=== PATIENT | female | born 1985 | race Caucasian/White ===

== ENCOUNTER 2018-08-13 15:22 | Emergency (ER) | payer BC ==
--- NOTE | 2018-08-13 17:35 | OBHP ---
Datetime: 08/13/2018 17:32 IP Adm Impression: Term, intrauterine ; No Active Labor IP Admit Plan: Observation/Evaluation; Discharge home Admit Comment, IP Provider: Patient is a 32-year-old 2 para 1 estimated due date 09/03/2018 estimated gestational age 37 weeks patient presents to labor and delivery complaining of uterine cont ractions of mild intensity. Patient denies any vaginal bleeding any leakage of fluid she reports good movement Past medical history none Medications vitamins Social history denies alcohol tobacco use care by Dr. Herrmann unremarkable Obstetrical history normal spontaneous vaginal delivery no complications Review of systems patient denies headache chest pain shortness breath palpitations nausea vomiting diarrhea heat or cold intolerance easy bruisability musculoskeletal or neurological complaints Vital signs stable afebrile Physical exam see notes Intrauterine at 37 weeks latent labor Observation External monitor Discharge home Patient to follow up with PMD in a.m. labor precautions provided And of care discussed with patient and partner who agree Pelvic Type - PN: Adequate Extremities - PN: Normal Abdomen - PN: Normal Back - PN: Normal Breast - PN: Not Done Lungs - PN: Normal Heart - PN: Normal Thyroid - PN: Normal Neurologic - PN: Normal HEENT - PN: Normal General - PN: Normal Weight - Estimated: 7 Presentation-Admit: Vertex FHR - Baseline A Provider: 150 Gestation - Est Wks by US: 37.0 Pool Provider: Negative Vital Signs Provider: Reviewed IP Chief Complaint: Uterine contractions; Maternal discomfort NICHD Variability Prov Fetus A: Moderate 6-25bpm NICHD Accel Fetus A IP Provider: [id number] FHR Category Provider Fetus A: Category I NICHD Decel Fetus A IP Provider: None Dilatation, Provider: 2 Effacement, Provider: 50 Station, Provider: -2 Genitourinary Exam: Normal DTRs - PN: Normal
[2018-08-13 21:46] VITALS: BP 106/59; PULSE 72
== END 2018-08-13 17:44 | disposition home or self-care (01) ==
LOC: H.EROB2 15:22
DX: O26.93 Pregnancy related conditions, unspecified, third trimester (principal); R10.2 Pelvic and perineal pain; Z3A.37 37 weeks gestation of pregnancy

== ENCOUNTER 2018-08-27 11:47 | Inpatient (IN) | payer BC ==
[2018-08-27] MEDS: Lactated Ringer's 1,000 ML IV SCH ×2 (12:24→14:30)
[2018-08-27 12:26] VITALS: BMI 26.4
[2018-08-27] MEDS ORDERED: Lactated Ringer's 1,000 ML IV ONE (13:30)
[2018-08-27] MEDS ORDERED: Oxytocin 30 UNIT 30 UNITS/500 ML BAG IV ONE ×2 (13:31→13:43)
[2018-08-27] MEDS ORDERED: OXYTOCIN/0.9 % NS 20 UNIT/1,000 ML BAG IV ONE (13:31)
[2018-08-27 14:04] LABS: BASO % 0.1 % (0.0-2.0); EOS % 0.1 % (0.0-4.0); HEMOGLOBIN 13.8 g/dL (12.0-16.0); LYMPH # 1.2 K/uL (1.0-4.3); MEAN CELL VOLUME 94.7 fl (81.0-99.0); MEAN CORPUSCULAR HGB CONC 33.8 g/dL (33.0-37.0); MEAN PLATELET VOLUME 9.7 fl (7.2-11.7); MONO # 0.4 K/uL (0.0-0.8); MONO % 4.1 % (0.0-10.0); NEUT # 8.1 K/uL (1.8-7.0); NEUT % 83.7 % (50.0-75.0); NRBC % 0.1 % (0.0-0.0); RBC 4.3 Mil/uL (3.80-5.20); RED CELL DISTRIBUTION WIDTH 14.1 % (11.5-14.5); WHITE BLOOD COUNT 9.6 K/uL (4.8-10.8)
[2018-08-27] MEDS ORDERED: Fentanyl/Bupivacaine HCl 250 ML EPI ONE (14:17)
[2018-08-27 14:56] VITALS: O2SAT 98
--- NOTE | 2018-08-27 17:44 | OBADHP ---
Datetime: 08/27/2018 17:37 Admit Comment, IP Provider: GBS neg Extremities - PN: Normal Abdomen - PN: Abnormal Back - PN: Not Done Breast - PN: Not Done Lungs - PN: Normal Heart - PN: Normal Thyroid - PN: Normal Neurologic - PN: Normal HEENT - PN: Normal General - PN: Normal Presentation-Admit: cephalic FHR - Baseline A Provider: 140 Amniotic Fluid Color, Provider: Clear Membranes, Provider: Ruptured Contraction Comments Provider: 2-3 mins Comments, ACOG Physical Exam: Abd term fundus NT Ext no calf tenderness Gestation - Est Wks by US: 39.0 Pool Provider: Positive Nitrazine Provider: Positive IP Hx Assessment: The History has been Reviewed and is Current Vital Signs Provider: Reviewed IP Chief Complaint: Uterine contractions; Suspected ruptured membranes NICHD Variability Prov Fetus A: Moderate 6-25bpm NICHD Accel Fetus A IP Provider: Prolonged NICHD Decel Fetus A IP Provider: None Genitourinary Exam: Normal DTRs - PN: Normal EGA AdmitDate IP: 39.0 IP Adm Impression: Term, intrauterine ; Active labor; Ruptured Membranes IP Admit Plan: Admit to unit; Initiate labor augmentation protocol Datetime: 08/13/2018 17:32 Pelvic Type - PN: Adequate Weight - Estimated: 7 FHR Category Provider Fetus A: Category I Dilatation, Provider: 2 Effacement, Provider: 50 Station, Provider: -2
[2018-08-27] MEDS ORDERED: Lidocaine 1% Inj (20ml) ONE (19:48)
[2018-08-28] MEDS ORDERED: Benzocaine/Menthol SPRAY TOP PRN ×2 (02:54→06:13)
[2018-08-28] MEDS ORDERED: Oxycodone/Acetaminophen 5/325 mg Tab PO PRN ×2 (02:54→06:13)
--- NOTE | 2018-08-28 02:54 | OBDS ---
MATERNAL INFORMATION Estimated Blood Loss (ml): 250cc Maternal Complications: None Provider Comments: Delivered a living baby boy appears term but LGA, cried spontaneously, 9/9, AF clear, placenta delivered complete and intact. Episiotomy done and repaired as above. No compli cations Tolerated procedure well Rectal done no defects. No other lacerations or tears noted Uterus c ontracted well. LABOR SUMMARY EDC: 09/03/2018 00:00 No. Babies in Womb: 1 LABOR INFORMATION Reason for Induction: Not Applicable Group B Beta Strep: Negative Steroids Given: None Reason Steroids Not Administered: Not Applicable VAGINAL DELIVERY Episiotomy: Median Laceration Extension: First Degree Laceration Type: Perineal Laceration Repair: Yes Laceration Repair Note: midline 1st dg episiotomy done with small perineal extension also 1st dg, an d repaired with 2-0 chromic continously for vagina and perineum and 3 interrupted for deeper tissues No complications. Sponge Count Correct: Yes Sharps Count Correct: Yes Count Comment: count correct and verified by RN CSECTION DELIVERY Primary Indication: N/A Secondary Indication: N/A CSection Incision: N/A Uterine Closure: N/A BABY A INFORMATION Forceps: N/A Vacuum Extraction: N/A Shoulder Dystocia : No PRESENTATION/POSITION BABY A Presentation: Cephalic Cephalic Presentation: Vertex Vertex Position: Right Occipital Posterior Breech Presentation: N/A PLACENTA INFORMATION BABY A Placenta Method of Delivery: Spontaneous Placenta Status: Delivered IDENTIFICATION/MEDS BABY A ID Band Number: [id number]
[2018-08-28] MEDS ORDERED: Influenza Vaccine (5 YR UP)/PF 60 MCG/0.5 ML SYR IM ONE (09:00)
[2018-08-28] MEDS: Hydrocortisone 2.5% (Rectal) CREAM PR SCH ×3 (17:49→17:50)
[2018-08-29 06:28] LABS: BASO % 0.2 % (0.0-2.0); EOS # 0.1 K/uL (0.0-0.7); EOS % 0.7 % (0.0-4.0); HEMOGLOBIN 12.1 g/dL (12.0-16.0); LYMPH # 1.8 K/uL (1.0-4.3); LYMPH % 16.6 % (20.0-40.0); MEAN CORPUSCULAR HEMOGLOBIN 32.6 pg (27.0-31.0); MEAN CORPUSCULAR HGB CONC 34.7 g/dL (33.0-37.0); MONO # 0.5 K/uL (0.0-0.8); MONO % 5.1 % (0.0-10.0); NEUT # 8.3 K/uL (1.8-7.0); NEUT % 77.4 % (50.0-75.0); RBC 3.72 Mil/uL (3.80-5.20); RED CELL DISTRIBUTION WIDTH 14.3 % (11.5-14.5); WHITE BLOOD COUNT 10.7 K/uL (4.8-10.8)
--- NOTE | 2018-08-29 08:17 | OBPPN ---
Datetime: 08/29/2018 08:08 PP Pain Prov: Within normal limits PP Pain Prov comment: Denies SOB chest or leg pains PP Nausea Prov: Denies PP Flatus Prov: Yes PP Breasts Prov: Normal PP Lungs Prov: Normal PP Abdomen/Uterus Prov: Abnormal PP Lochia Prov: Normal PP Vulva/Perineum Prov: Abnormal PP CVA Tenderness Prov: Normal PP Extremities Prov: Normal PP C/S Incision Prov: Not Applicable PP Progress Prov: Normal PP Comments Phys Exam Prov: Breast soft NE, breast feeding NT; Abd soft ND fundus firm below the umb NT, Perineum repaired Huggins in place Ext no calf tenderness PP Plan Prov: Continue present management PP Impression Other Prov: urinary retention PP Plan Other Prov: bladder training PP Progress Note Prov: Not able to micturate on her own yesterday had to be straight cath and had ov er 200 cc and then again not able to void and huggins was inserted and at 6 am was clamped and now ope silva and let drain and will clamp again for 2 hrs will evaluate this pm to see if able to void on her own Discussed plan with pt and understands and agreed IP PP Procedures: None Vital Signs Provider PP: Reviewed
[2018-08-29] MEDS: Hydrocortisone 2.5% (Rectal) CREAM PR SCH ×2 (09:03→17:20)
[2018-08-30] MEDS ORDERED: Bisacodyl 5mg EC Tab PO PRN (05:19)
[2018-08-30] MEDS: Hydrocortisone 2.5% (Rectal) CREAM PR SCH (09:40)
[2018-08-30 18:21] VITALS: BP 102/60; PULSE 55; RESP 18; TEMP 98.6
--- NOTE | 2018-08-31 08:49 | OBDCSUM ---
Datetime: 08/30/2018 11:47 Disch Instr Activity: Bedrest; May be up to bathroom; May be up for meals; May Shower Discharge Instructions, Provider: Routine instructions given Discharge Diagnosis, Provider: Term Delivered Contraception discussed, Prov: Yes Disch Activity Restrictions: No exercising; No lifting; No driving; Minimize walking; Minimize stair -climbing; No sexual activity; Nothing in vagina - [place], tampons, douche Discharge Comment, Provider: abi excersises intruction Continue PNC vit and iron Contraception after Delivery: Undecided
== END 2018-08-30 13:30 | disposition home or self-care (01) | DRG 807 ==
LOC: H.EROB2 11:47 → H.L&D 12:35 → H.OB/GYN 08-28 06:09
PROVIDERS: ADMIT Specialist; ATTEND Specialist
PROC: 10E0XZZ Delivery of Products of Conception, External Approach (ICD-10-PCS; principal; 2018-08-27)
PROC: 0W8NXZZ Division of Female Perineum, External Approach (ICD-10-PCS; 2018-08-27)
PROC: 4A1HXCZ Monitoring of Products of Conception, Cardiac Rate, External Approach (ICD-10-PCS; 2018-08-27)
DX: O36.63X0 Maternal care for excessive fetal growth, third trimester, not applicable or unspecified (principal); Z37.0 Single live birth; O70.0 First degree perineal laceration during delivery; Z3A.39 39 weeks gestation of pregnancy